=== PATIENT | male | born 1990 | race Caucasian/White ===

== ENCOUNTER 2024-09-05 12:23 | Emergency (ER) | payer BC, SELFPAY ==
--- NOTE | ~2024-09-05 | XR_ITS ---
EXAMINATION: XR CHEST 2 VIEWS HISTORY: dyspnea and chest pain COMPARISON: There are no prior studies for comparison. FINDINGS: PA and lateral views of the chest are submitted. The lungs are expanded and clear. There is no pleural effusion, pneumothorax, or pulmonary vascular congestion. The heart is normal in size. The bones are intact. XR/XR chest 2V IMPRESSION: Normal examination of the chest. Electronically signed by: Kishore Dave MD 09/05/2024 01:11 PM EDT
--- NOTE | 2024-09-05 12:26 | ECG_ITS ---
Test Reason : cp Blood Pressure : */* mmHG Vent. Rate : 65 BPM Atrial Rate : 65 BPM P-R Int : 188 ms QRS Dur : 96 ms QT Int : 390 ms P-R-T Axes : 51 55 52 degrees QTcB Int : 405 ms Normal sinus rhythm with sinus arrhythmia Normal ECG No previous ECGs available Referred By: Generic ED Physician Electronically Signed By: WHITNEY WALTON MD
[2024-09-05 12:43] VITALS: BP 113/65; PULSE 67; RESP 16; TEMP 36.8; O2SAT 96; BMI 31.8
--- NOTE | 2024-09-05 12:49 | ED_ITS ---
HPI - Chest Pain General Chief Complaint: Chest Pain Stated Complaint: SOB, chest pain Time Seen by Provider: 09/05/24 13:45 Source: patient Mode of arrival: ambulatory Limitations: no limitations History of Present Illness ED Provider: DR. Deleon HPI narrative: 33-year-old male history of asthma mostly exercise and allergy induced asthma last episode of asthma that the patient remember was in his 20s going to have asthma medication at home, patient was fine until he had his breakfast then shortly after patient started to have shortness of breath, and coughing with clear thick sputum, felt tightness and wheezing in his chest, patient is is progressively getting better, with improvement of his symptoms while he is in the emergency department. No fever, no chills, no recent history of travels, no history of prolonged immobilization, no history of lower extremity swelling, history of DVT or PE. Patient is not a smoker, has a active lifestyle and exercising. Related Data Previous Rx's ?Medication ?Instructions ?Recorded albuterol sulfate 90 mcg/actuation 2 inh inhalation Q4-6H PRN 09/05/24 breath activated powder shortness of breath or wheezing #1 inhaler,sensor (Proair Digihaler) ea prednisone 20 mg tablet 20 mg PO BID #6 tabs 09/05/24 Allergies Allergy/AdvReac Type Severity Reaction Status Date / Time No Known Allergies Allergy Verified 09/05/24 12:43 Review of Systems 2 Review of Systems: All other systems are reviewed and are negative Constitutional: Reports as per HPI and Reports no additional constitutional complaints Eyes: Reports as per HPI and Reports no additional eye complaints Reports system reviewed and no additional complaints, except as documented Cardiovascular: Reports as per HPI and Reports no additional cardiovascular complaints Respiratory: Reports as per HPI and Reports no additional respiratory complaints Gastrointestinal: Reports as per HPI and Reports no additional gastrointestinal complaints Genitourinary: Reports no additional female genitourinary complaints Musculoskeletal: Reports no additional musculoskeletal complaints Skin/Breast: Reports system reviewed and no additional complaints, except as docu Psychiatric: Reports no additional psychiatric complaints Endocrine: Reports no additional endocrine complaints Hematologic/Lymphatic: Reports no additional hematologic/lymphatic complaints Allergic/Immunologic: Reports no additional allergic/immunologic complaints Reports system reviewed and no additional complaints, except as documented and Reports Abnormal speech present Physical Exam 2 Vital Signs: Vital Signs: Last Vital Signs Temp 98.2 F 09/05/24 12:43 Pulse 67 09/05/24 12:43 Resp 16 09/05/24 12:43 BP 113/65 09/05/24 12:43 Pulse Ox 96 09/05/24 12:43 O2 Del Method Room Air 09/05/24 12:43 BMI result Body Mass Index 31.8 Vital signs have been reviewed and appear to be correct. Blood pressure elevated. Heart rate normal. Respiratory rate normal. Temperature normal. Oxygen saturation normal. Appearance: Alert. Oriented X3. No acute distress. Head: Normal external exam. Normocephalic. Atraumatic. No [place] signs noted. No raccoon eyes noted Eyes: PERRLA. EOMI. Conjunctiva and sclera normal. Eyelids normal. ENT: TM's Normal. Pharynx normal. Uvula midline. Moist mucous membranes. No trismus noted. No drooling noted. No muffled voice noted. Neck: Normal inspection. Neck supple. FROM. No adenopathy. Thyroid Normal. No meningeal signs. No neck mass noted. CVS: Normal heart rate and rhythm. Heart sound normal. No murmurs noted. Pulses normal throughout. Respiratory: No respiratory distress. Painless inspiration. Breath sounds normal. No wheezes/rales/rhonchi noted. Chest nontender. No accessory muscle usage noted or decreased air movement noted. Abdomen: Soft and nontender. Bowel sounds normal in all 4 quadrants. No distention noted. No organomegaly noted. No visible injury noted. Back: No CVA tenderness. Full range of motion noted. Skin: Skin warm and dry. Normal skin color. Normal skin turgor. No rashes/lesions/lacerations noted. Extremities: No lower extremity edema. Extremities exhibit normal range of motion. Extremities nontender. Neuro: Oriented X 3. Cranial nerve exam: II-XII are grossly intact No motor deficit. No sensory deficit. Reflexes normal. Course Course Course Narrative: This is a rapid medical exam performed by Lynne Luevano NP: Additional HPI, ROS, PE not included below will be deferred to primary provider. Patient is a 33-year-old male with history of childhood asthma presenting to the emergency department with complaint of sudden onset shortness of breath and chest pain. Reports that symptoms began after eating eggs. Unsure if related to allergies as he states sometimes his allergies are triggered at his mother's home. Lungs clear throughout, in no acute distress. Plan: EKG, CXR, labs, viral panel Reevaluation(s) Reevaluation #1: [age] with history of asthma, patient is nonsmoker, presented with shortness of breath, patient has no risk for pulmonary embolism with negative D- dimer, patient also has a negative workup including chest x-ray and blood workup, no significant wheezing on the physical exam. Will start the patient on short course of prednisone with bronchodilator. Time: 15:00 Medical Decision Making Differential Diagnosis Differential Diagnoses: The differential diagnosis associated with the presentation includes (Pneumonia, pneumothorax, pleural effusion, asthma exacerbation, pulmonary embolism, electrolyte derangement, severe anemia, CHF, ACS less likely.) Admission/Observation Consideration of admission/observation: Escalation of care including admission/observation considered Lab Data MDM Lab Attestation statement: I reviewed the patient's lab results. 09/05/24 12:57 09/05/24 12:57 Labs: Lab Results 09/05/24 Range/Units 12:57 WBC 6.8 (4.8-10.8) X10*3/uL RBC 5.24 (4.60-5.80) X10*6/uL Hgb 16.4 (14.0-18.0) g/dl Hct 45.9 (42.0-52.0) % MCV 87.6 (80.0-98.0) fL MCH 31.3 (27.0-33.0) pg MCHC 35.7 (31.0-36.0) g/dl RDW 11.9 (11.0-16.0) % Plt Count 221 (160-400) X10*3/uL MPV 9.0 L (9.4-12.4) fL Immature Gran % (Auto) 0.3 (0.0-0.4) % Neut % (Auto) 73.7 H (45-73) % Lymph % (Auto) 18.1 L (20-40) % [place]irie % (Auto) 6.9 (2-11) % Eos % (Auto) 0.9 (0-4) % Baso % (Auto) 0.1 (0-2) % Lymph # (Auto) 1.2 (1.2-4.9) X10*3/uL [place] # (Auto) 0.5 (0.1-1.2) X10*3/uL Eos # (Auto) 0.1 (0.0-0.4) X10*3/uL Baso # (Auto) 0.0 (0.0-0.2) X10*3/uL Abs Immat Gran (auto) 0.02 (0.00-0.03) X10*3/uL Absolute Neuts (auto) 5.0 (2.0-8.3) x10*3/uL Absolute Nucleated RBC 0.000 (0.0-0.012) X10*3/uL Nucleated RBC % (auto) 0.0 (0.0-0.2) /100WBC Sodium 140 (135-145) mmol/L Potassium 4.6 (3.3-5.1) mmol/L Chloride 104 (96-108) mmol/L Carbon Dioxide 28 (22-29) mmol/L Anion Gap 13 (12-20) BUN 17 H (9-16) mg/dL Creatinine 0.94 (0.5-1.4) mg/dL Estim Creat Clear Calc 143.4 Estimated GFR > 60 Random Glucose 92 (60-115) mg/dL Calcium 9.6 (8.4-10.2) mg/dL Total Bilirubin 0.4 (0.0-1.0) mg/dL AST 27 (5-37) U/L ALT 21 (0-40) U/L Alkaline Phosphatase 68 (39-117) U/L Troponin I High Sens < 2.7 (<3.5-35.0) ng/L Total Protein 7.8 (6.5-8.0) g/dL Albumin 4.5 (3.5-5.0) g/dL Influenza Type A (PCR) NEGATIVE (Negative) Influenza Type B (PCR) NEGATIVE (Negative) RSV RNA Qual (PCR) NEGATIVE (Negative) SARS-CoV-2 RNA (RT-PCR) NEGATIVE (Negative) Independent Interpretation I performed an independent interpretation of an: EKG (Normal sinus rhythm at 65 beats per minutes, normal intervals, no ST-T changes, no old EKG to compare.) and Plain X-Ray (Chest: No acute pulmonary pathology) Radiology Impression Discussion of test interpretation with radiology: I have reviewed the radiologist's reading. Scores Heart Score History: -0- slightly suspicious ECG: -0- normal Age: -0- < or = 45 Risk factory: -0- no risk factors known Troponin: -0- < or = normal limit Score: 0 Risk: 1.7% Discharge Plan Discharge Clinical Impression: Wheezing Patient Disposition: Home, Self-Care Instructions: Wheezing (ED) Prescriptions: New Proair Digihaler 90 mcg/actuation aero powdr breath act w/sensor 2 inh inhalation Q4-6H PRN (Reason: shortness of breath or wheezing) Qty: 1 0RF prednisone 20 mg tablet 20 mg PO BID Qty: 6 0RF Print Language: Peruvian
[2024-09-05 13:11] LABS: MANUAL DIFF FLAG NO
[2024-09-05 13:13] LABS: Basophils Percent Auto 0.1 % (0-2); Eosinophils Absolute Auto 0.1 X10*3/uL (0.0-0.4); Eosinophils Percent Auto 0.9 % (0-4); Hematocrit 45.9 % (42.0-52.0); Hemoglobin 16.4 g/dl (14.0-18.0); Imm Gran Abs Auto 0.02 X10*3/uL (0.00-0.03); Imm Gran Pct Auto 0.3 % (0.0-0.4); Lymphocytes Absolute Auto 1.2 X10*3/uL (1.2-4.9); Lymphocytes Percent Auto 18.1 % (20-40); Mean Corpuscular HGB Conc 35.7 g/dl (31.0-36.0); Mean Corpuscular Hemoglobin 31.3 pg (27.0-33.0); Mean Corpuscular Volume 87.6 fL (80.0-98.0); Monocytes Absolute Auto 0.5 X10*3/uL (0.1-1.2); Monocytes Percent Auto 6.9 % (2-11); Neutrophils Percent Auto 73.7 % (45-73); Platelet Count 221 X10*3/uL (160-400); Red Blood Count 5.24 X10*6/uL (4.60-5.80); Red Cell Distribution Width 11.9 % (11.0-16.0); White Blood Count 6.8 X10*3/uL (4.8-10.8)
[2024-09-05 13:36] LABS: Alanine Aminotransferase 21 U/L (0-40); Albumin Level 4.5 g/dL (3.5-5.0); Alkaline Phosphatase 68 U/L (39-117); Anion Gap 13 (12-20); Aspartate Amino Transferase 27 U/L (5-37); Bilirubin Total 0.4 mg/dL (0.0-1.0); Blood Urea Nitrogen 17 mg/dL (9-16); Calcium 9.6 mg/dL (8.4-10.2); Carbon Dioxide 28 mmol/L (22-29); Chloride 104 mmol/L (96-108); Creatinine Clr Calc Pharmacy 143.4; Estimated Glomerular Filt Rate > 60; Glucose Random 92 mg/dL (60-115); Potassium 4.6 mmol/L (3.3-5.1); Sodium 140 mmol/L (135-145); Total Protein 7.8 g/dL (6.5-8.0)
[2024-09-05 13:37] LABS: Troponin-I High Sensitivity < 2.7 ng/L (<3.5-35.0)
[2024-09-05 14:01] LABS: Influenza A PCR NEGATIVE (Negative); Influenza B PCR NEGATIVE (Negative); Resp Syncy Virus RNA Qual PCR NEGATIVE (Negative); SARS COV2 PCR INHOUSE NEGATIVE (Negative)
[2024-09-05] MEDS: Albuterol Sulfate 90 MCG 8 GM INHALER 2 PUFF INHALE (14:16)
[2024-09-05] MEDS: predniSONE 20 MG TABLET 40 MG PO (14:16)
[2024-09-05 14:48] LABS: D Dimer High Sensitivity < 150 NG/ML
[2024-09-05 15:34] VITALS: BP 113/65; PULSE 67; RESP 16; TEMP 36.8; O2SAT 96
--- OUTSIDE RECORDS SUMMARY | 2024-09-05 17:46 | XMS_ITS | Encounter Summary ---
Author Organization [facility] Address [address] [place] [phone] Phone Care Team Providers Care Jackhammer Operator Name Role Phone Georgia Landry MD Primary Care Provider Encounter Details Date Type Department Care Team (Late st Contact Info) Description 05/31/2012 Documentation [facility] Family Medicine [address] [place], [place] [id number] Family Medicine, Physician [address] [place] [address] Social History Tobacco Use Types Packs/Day Years Used Date Smoking Tobacco: Never Assessed Sex and Gender Information Value Date Recorded Sex Assigned at Not on file Legal Sex Male 4:43 PM EDT Gender Identity Not on file Sexual Orientation Not on file documented as of this encounter Plan of Treatment Not on file documented as of this encounter Visit Diagnoses Not on filedocumented in this encounter Care Teams Jackhammer Operator Relationship Specialty Start Date End Date Georgia Landry MD [address] [place] [address] PCP - General 12/30/16 09/11/22 documented as of this encounter
--- OUTSIDE RECORDS SUMMARY | 2024-09-05 17:46 | XMS_ITS | Encounter Summary ---
Author Organization [facility] Address [address] [place] [address] Phone Care Team Providers Care Medical Assistant Ob Gyn Name Role Phone Georgia Landry MD Primary Care Provider [phone] Encounter Details Date Type Department Care Team (Late st Contact Info) Description 03/23/2017 Conversion Encounter [facility] [address] [place] [address] Social History Tobacco Use Types Packs/Day Years Used Date Smoking Tobacco: Some Days Comments:Current some day sm oker Sex and Gender Information Value Date Recorded Sex Assigned at Not on file Legal Sex Male 4:43 PM EDT Gender Identity Not on file Sexual Orientation Not on file documented as of this encounter Plan of Treatment Not on file documented as of this encounter Visit Diagnoses Not on filedocumented in this encounter Care Teams Medical Assistant Ob Gyn Relationship Specialty Start Date End Date Georgia Landry MD [address] [place] [address] PCP - General 12/30/16 09/11/22 documented as of this encounter
--- OUTSIDE RECORDS SUMMARY | 2024-09-05 17:46 | XMS_ITS | Clinical Summary ---
Author Organization [facility] Address [address] [place] [phone] Phone Care Team Providers Care Insurance Verification Clerk Name Role Phone Unavailable Primary Care Provider Unavailabl e Immunizations Immunization Administration Dates Next Due DTP 11/27/1997, 5,06/10/1993,04/08,01/20/1993 Hep A, ped/adol 11/11/2010 Hep B, ped/adol 08/25/1993,01/20/1993,1992 Hib (PRP-T) 02/24/1994, 4,04/08/1993,01/20 IPV 06/21/1994 MMR 11/26/1996,02/24/1994 Meningococcal Conj (Menactra) MCV4P 12/26/2006 OPV 11/27/1997,04/08/1993,01/20/1993 Td (adult) (MBL), 2 Lf tetan us toxoid, PF, adsorbed 11/10/2004 Tdap 12/12/2007 Varicella 12/12/2007,12/24/2002 Family History Relation Name Status Comments Father Alive Father: Alive a nd well Mother Alive Mother: Alive a nd well Sister Alive Sister: Alive a nd well Social History Tobacco Use Types Packs/Day Years Used Date Smoking Tobacco: Some Days Comments:Current some day sm oker Sex and Gender Information Value Date Recorded Sex Assigned at Not on file Legal Sex Male 4:43 PM EDT Gender Identity Not on file Sexual Orientation Not on file Last Filed Vital Signs Vital Sign Reading Time Taken Comments Blood Pressure 125/73 05/13/2013 12:00 AM EST Pulse 73 05/13/2013 12:00 AM EST Temperature 36.2 ??C (97.2 ??F) 01/23/2012 12:00 AM E DT Respiratory Rate - - Oxygen Saturation 99% 01/16/2012 12:00 AM EDT Inhaled Oxygen Concentration - - Weight 111 kg (244 lb) 05/13/2013 12:00 AM EST Height 182.9 cm (6') 01/23/2012 12:00 AM EDT Body Mass Index 33.09 01/23/2012 12:00 AM EDT Plan of Treatment Health Maintenance Due Date Last Done Comments Hepatitis A Vaccines (2 of 2 - 2-dose series) 05/13/2011 11/11/2010 DTaP,Tdap,and Td Vaccines (7 - Td or Tdap) 12/11/2017 12/12/2007, 11/10/2004, 11/27/1997, Additional history exists Influenza Vaccines (#1) 2023 COVID-19 Vaccine ( season) 2024 Hepatitis B Vaccines Completed 08/25/1993, 01/20/1993, 1992 HIB Vaccines Completed 02/24/1994, 05/23, 04/08/1993, Additional history exists MMR Vaccines Completed 11/26/1996, 02/24/1994 IPV Vaccines Completed 11/27/1997, 05/24, 04/08/1993, Additional history exists Meningococcal Vaccine Aged Out 12/26/2006 No rishi mary eligible based on patient's age to complete this topic Varicella Vaccines Completed 12/12/2007, 12/24/2002 HPV Vaccines Aged Out No longer eligi ble based on patient's age to complete this topic Men B Vaccine Aged Out No longer elig ible based on patient's age to complete this topic Pneumococcal Vaccine Aged Out No long er eligible based on patient's age to complete this topic
== END 2024-09-05 15:34 | disposition home or self-care (01) ==
PROVIDERS: Registered Nurse Emergency; Emergency Provider Emergency Medicine
DX: R06.2 Wheezing (principal); J45.909 Unspecified asthma, uncomplicated; Z03.818 Encounter for observation for suspected exposure to other biological agents ruled out
CPT/HCPCS: 0241U; 36415; 71046; 80053; 84484; 85025; 85379; 93005; 99284; 99285

== ENCOUNTER → 2024-09-05 12:26 | Outpatient (BNV) | payer BC, SELFPAY | PROVIDERS: Emergency Provider Emergency Medicine; Visit Provider Internal Medicine Cardiovascular Disease | DX: R07.9 Chest pain, unspecified (principal) | CPT/HCPCS: 93010 ==

== ENCOUNTER → 2024-09-05 12:50 | Outpatient (BNV) | payer SELFPAY | PROVIDERS: Emergency Provider Emergency Medicine; Visit Provider Radiology Diagnostic Radiology | DX: R06.00 Dyspnea, unspecified (principal); R07.9 Chest pain, unspecified | CPT/HCPCS: 71046 ==